=== PATIENT | female | born 1995 | race Caucasian/White ===

== ENCOUNTER 2022-12-19 14:35 | Emergency (ER) | payer BC ==
[~2022-12-19] VITALS: Ht 160 cm; Wt 88.5 kg
== END 2022-12-19 16:38 | disposition home or self-care (01) ==
LOC: ED 14:35
DX: S93.401A Sprain of unspecified ligament of right ankle, initial encounter (principal); W10.8XXA Fall (on) (from) other stairs and steps, initial encounter; Y93.89 Activity, other specified; Y92.89 Other specified places as the place of occurrence of the external cause; Y99.8 Other external cause status